=== PATIENT | male | born 1975 | race Caucasian/White ===

== ENCOUNTER 2017-05-21 14:24 | Emergency (ER) | payer BC, OTHER ==
[~2017-05-21] VITALS: Ht 167.6 cm; Wt 117.6 kg
[2017-05-21] MEDS ORDERED: LIDOCAINE/PF 1%-EPI 1:200K, 30 ML INFIL ONE (15:00)
[2017-05-21 15:15] LABS: HEMATOCRIT 43.9 % (39.2-51.8); HEMOGLOBIN 14.8 g/dL (13.7-18.0); WHITE BLOOD COUNT 10.4 x10^3/uL (3.4-10)
[2017-05-21 15:24] LABS: BLOOD UREA NITROGEN 11 mg/dL (7-18)
[2017-05-21 16:14] VITALS: BP 144/70
== END 2017-05-21 16:28 | disposition home or self-care (01) ==
LOC: ED 16:24
DX: K61.0 Anal abscess (principal)
CPT/HCPCS: 36415; 46050; 80048; 85025; 99284

== ENCOUNTER 2018-11-20 19:05 | Emergency (ER) | payer BC, OTHER ==
[~2018-11-20] VITALS: Ht 167.6 cm; Wt 106.0 kg
--- NOTE | 2018-11-20 19:40 | NUR ---
PT. REPORTS GOT RESIDUE ON HIS HANDS FROM [facility] AND [id number] ABOUT 1 HOUR AGO. per triage note
--- NOTE | 2018-11-20 20:29 | NUR ---
ua in lab
[2018-11-20 20:50] LABS: AMPHETAMINE SCREEN, URINE Negative (Negative); BARBITURATE SCREEN, URINE Negative (Negative); BENZODIAZEPINE SCREEN, URINE Negative (Negative); CANNABINOID SCREEN, URINE Negative (Negative); COCAINE SCREEN, URINE Negative (Negative); METHADONE SCREEN, URINE Negative (Negative); OPIATE SCREEN, URINE Negative (Negative)
--- NOTE | 2018-11-20 21:21 | NUR ---
given dc instruction pt understood pt up ambulated to check out with family works com doc copy given to pt
[2018-11-20 21:36] VITALS: BP 135/88
== END 2018-11-20 21:40 | disposition home or self-care (01) ==
LOC: ED 21:34
DX: T43.621A Poisoning by amphetamines, accidental (unintentional), initial encounter (principal); Y92.89 Other specified places as the place of occurrence of the external cause
CPT/HCPCS: 80307; 93005; 99284

== ENCOUNTER 2021-02-13 09:01 | Emergency (ER) | payer BC, OTHER ==
[~2021-02-13] VITALS: Ht 167.6 cm; Wt 106.2 kg
--- NOTE | 2021-02-13 09:17 | NUR ---
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 PT STATES HAS BEEN TAKING IBPROFEN TYELENOL AND HEATING PAD AND USE OF A MUSCLE RELAXER YESTERDAY AND LAST NIGHT AND HELPED SLEEP AND MOVE AROUND, BUT LAYING TO SITTING TO STANDING IS REALLY BAD.
--- NOTE | 2021-02-13 09:26 | NUR ---
PROVIDER AT BEDSIDE PT STATES LAYED DOWN FOR AN HOUR AFTER PAIN, PT STATES CAN WALK ASSISTANCE LAST NIGHT 'FELT LIKE BACK COULDN'T HOLD HIS WEIGHT" PT STATES HAS MINOR BACK ACHES FROM GENERAL WORK.
[2021-02-13] MEDS ORDERED: KETOROLAC 30 MG/1 ML ONE (09:46)
[2021-02-13] MEDS ORDERED: HYDROcodone/APAP 5/325 TABLET ONE (09:46)
[2021-02-13] MEDS ORDERED: DIAZEPAM 5 MG TABLET ONE (09:46)
--- NOTE | 2021-02-13 09:56 | NUR ---
PT MEDICATED, TOLERATED IM INJECTION WELL. VSS, CALL REMOTE WITHIN REACH
[2021-02-13] MEDS ORDERED: DIAZEPAM 5 MG TABLET PO ONE (10:00)
[2021-02-13] MEDS ORDERED: HYDROcodone/APAP 5/325 TABLET PO ONE (10:00)
[2021-02-13] MEDS ORDERED: KETOROLAC 30 MG/1 ML IM ONE (10:00)
--- NOTE | 2021-02-13 10:29 | NUR ---
PT STATES AFTER BEING MEDICATED IS ABLE TO STAND WITHOUT ASSISTANCE AND IS FEELING LESS PAIN AT 4/10.
[2021-02-13 11:21] VITALS: BP 111/63
--- NOTE | 2021-02-13 11:21 | NUR ---
Patient given discharge instructions and they have confirmed that they understand the instructions. Patient ambulatory with steady gait. No question at time of discharge.
== END 2021-02-13 11:25 | disposition home or self-care (01) ==
LOC: ED 10:07
DX: S39.012A Strain of muscle, fascia and tendon of lower back, initial encounter (principal); X58.XXXA Exposure to other specified factors, initial encounter; Y93.89 Activity, other specified; Y92.89 Other specified places as the place of occurrence of the external cause; Y99.8 Other external cause status
CPT/HCPCS: 96372; 99283; J1885